=== PATIENT | male | born 1955 | race Caucasian/White ===

== ENCOUNTER 2018-12-16 07:33 | Emergency (ER) | payer OTHER ==
[~2018-12-16] VITALS: Ht 182.9 cm; Wt 106.6 kg
[2018-12-16 07:41] VITALS: Ht 182.9 cm; Wt 106.6 kg
[2018-12-16 08:35] VITALS: BP 134/82
== END 2018-12-16 08:35 | disposition home or self-care (01) ==
LOC: ED 07:33
DX: M54.5 Low back pain (principal); Z98.890 Other specified postprocedural states
CPT/HCPCS: J2270